=== PATIENT | female | born 1940 | race Caucasian/White ===

== ENCOUNTER 2017-08-01 08:00 | Outpatient (CLI) | payer MEDICARE ==
[2017-08-01] MEDS ORDERED: SYNTHROID88 MCG PO (08:14)
[2017-08-01] MEDS ORDERED: LISINOPRIL2.5 MG PO (08:14)
[2017-08-01] MEDS ORDERED: NAPROSYN500 MG PO (08:14)
[2017-08-01] MEDS ORDERED: LIPITOR20 MG PO (08:14)
[2017-08-01] MEDS ORDERED: ZANTAC 7575 MG PO (08:15)
[2017-08-01] MEDS ORDERED: OMEPRAZOLE40 MG PO (08:16)
[2017-08-01] MEDS ORDERED: HCTZ25 MG PO (08:16)
[2017-08-01] MEDS ORDERED: MYRBETRIQ25 MG PO (08:16)
[2017-08-01 09:17] LABS: ANION GAP 13.3 mmol/L (8-16); CALCIUM 8.9 mg/dL (8.5-10.1); CARBON DIOXIDE 25.9 mmol/L (21.0-32.0); HEMATOCRIT 37.3 % (36.0-48.0); HEMOGLOBIN 11.6 g/dL (12-16); MCH 23.4 pg (26.0-34.0); MCHC 31.1 g/dL (31.0-37.0); MCV 75.4 fL (80.0-100.0); MEAN PLATELET VOLUME 10.6 fL (7.4-10.4); POTASSIUM - SERUM 4.2 mmol/L (3.5-5.1); RBC 4.95 10x6/uL (4.00-5.40); RDW 17.5 % (11.5-14.5); WBC 5.2 10x3/uL (4.8-10.8)
[2017-09-06 08:48] VITALS: BMI 27.0
== END 2017-08-01 08:01 | disposition home or self-care (01) ==
LOC: D.OPS 08:00 → EDSTATUS 08-02 08:30 → D.PAN 08-02 08:30 → D.OPS 08-02 08:30 → D.PAN 08-02 09:30 → D.OPS 08-02 10:00
PROVIDERS: Anesthesiology
DX: N39.3 Stress incontinence (female) (male) (principal); Z01.810 Encounter for preprocedural cardiovascular examination; Z01.811 Encounter for preprocedural respiratory examination; Z01.812 Encounter for preprocedural laboratory examination; Z53.9 Procedure and treatment not carried out, unspecified reason

== ENCOUNTER 2017-09-06 07:15 | Day surgery (SDC) | payer MEDICARE ==
[~2017-09-06] VITALS: Ht 167.6 cm; Wt 75.8 kg
--- NOTE | ~2017-09-06 | OP ---
PATIENT NAME: DOREEN JANE MEDICAL RECORD: [id number] :38 LOCATION:D.OPS ADMISSION DATE: SURGEON: ALDAIR FRAZIER MD DATE OF OPERATION: 09/06/2017 SURGEON: Aldair Frazier MD ANESTHESIA: General anesthesia by Jhony Jim CRNA DIAGNOSIS: Recurrence of female stress urinary incontinence. PROCEDURE: Cystoscopy, pubovaginal sling with mesh - [place] [employer] Obtryx graft. FINDINGS: Old pubovaginal sling was made of fascia. The fascia has completely attenuated. Single ureteral orifices bilaterally. No bladder tumors, no bladder injury seen on cystoscopy. BLOOD LOSS: Minimal. CLINICAL HISTORY: This is a 77-year-old female, A0, who is complaining of stress urinary incontinence. This has been present for many years, but it is getting worse lately. In 1971, she had hysterectomy performed for heavy menses. In the , she had 2 pubovaginal slings performed for stress urinary incontinence. The second sling was successful and it lasted about 30 years, but now it has given away. She wishes to have the pubovaginal sling redone in order to become continent again. She is not sexually active. On physical examination, she did have stress urinary incontinence with a positive Shimon test. The old sling was palpable. No graft exposure was noted on speculum examination. 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 THE PATIENT IS ALLERGIC TO MORPHINE AND SULFA. She was given ampicillin branch operations specialist to the OR. DESCRIPTION OF PROCEDURE: The patient was given induction of general anesthesia. She was placed in the dorsal lithotomy position and shaved, prepped, and draped. A 16-[place]yr[place] Donato catheter was put into the bladder and put to bag drainage. The labia majora were retracted laterally using #2 nylon stay sutures. There was still quite significant stenosis of the vagina, which would make access to the urethral area difficult. Therefore, I had to make an episiotomy of about 1 cm depth in the posterior fourchette in order to have enough of an opening to work through. The anterior vaginal wall was then infiltrated with Pitressin solution. Twenty units of Pitressin was diluted in 100 mL of injectable saline. This was injected into the anterior vaginal wall for hydrodissection. A transverse incision was marked out of about 2 cm length placed 1 cm away from the urethral meatus. This was in the anterior vaginal wall. I turned this transverse incision into a T by adding a small vertical portion that ran along the anterior vaginal wall midline. The incision was made using a #15 blade. Tenotomy scissors were used to raise the vaginal mucosal flaps from the underlying urethra. Metzenbaum scissors were used to complete the dissection laterally until we entered through the pubocervical fascia and I could clearly palpate the obturator membrane on each side. The patient's old sling was made of fascia as I cannot palpate any mesh in place. The suspensory sutures can still be palpated. She has suprapubic small incision through which the suspensory OPERATIVE REPORT [id number] DOREEN JANE sutures were tied in the suprapubic area. However, no palpable or definite thickness of fascial graft remained. The collagen of the fascial graft that she had previously has been completely dissolved. At this point, we placed our landmarks for the trocar insertion. These are at the insertion of the adductor longus muscle on the descending pubic ramus. One ti was made on each side of the groin using a marking pen. A small stab incision was made on each of these dent. The [employer] Obtryx trocars were then passed behind the descending pubic ramus and through the apex of the obturator membrane. The tips then exited out through the vaginal incision. The tips of the graft were then clipped on to the tips of the trocars and the trocars were withdrawn to result in a transobturator passage of the graft. The graft was a tab in the midpoint. This midpoint was placed under the mid urethra. At this point, there was no tension on the graft. We then deflated the Donato catheter balloon and performed cystoscopy. A 17-[place]yrgy[place] cystoscope with 30-degree lens was used for visualization. No bladder injury was seen. The bladder was filled through the cystoscope. Once the scope was removed by applying manual pressure to the bladder area suprapubically, we could elicit leakage per the urethra. We then removed the tab on the midportion of the sling and then gradually increased the tension on the sling until there was minimal leakage per the urethra with suprapubic pressure. There was still a bit of dribbling with suprapubic pressure, but I could not apply any further tension to the pubovaginal sling, which was already at near maximal pressure. At this point, the clear plastic sheath material on each graft arm was completely removed. The graft arms were cut where they exited the groin skin and allowed to retract under the skin. The stab incisions were closed with simple interrupted 4-0 Vicryl. The wound was irrigated out and the anterior vaginal wall was closed with running 4-0 Monocryl. The 2-0 Vicryls were used to reapproximate the perineal body. Two such sutures were placed in a horizontal mattress fashion. The posterior vaginal wall was then reapproximated using running 4-0 Vicryl. Vaginal packing consisting of Kerlix infiltrated with estrogen cream was placed into the vagina. This will be removed prior to the patient being discharged home today. Also, the Donato catheter balloon was deflated and the Donato catheter was removed entirely. If the patient cannot void prior to going home, then we will have to send her home with an indwelling Donato catheter and give her a voiding trial tomorrow. TRANSINT:[id number] Voice Confirmation ID: [id number] DOCUMENT ID: [id number] ALDAIR FRAZIER MD at 1336 CC: [id number] DICTATION DATE: 09/06/17 1152 [address] REWINDER: 09/06/17 1217 [facility] [address] [place] [address]
[~2017-09-06 07:15] MED LIST: HCTZ25 MG PO; LIPITOR20 MG PO; LISINOPRIL2.5 MG PO; MYRBETRIQ25 MG PO; NAPROSYN500 MG PO; OMEPRAZOLE40 MG PO; SYNTHROID88 MCG PO; ZANTAC 7575 MG PO
[2017-09-06 08:01] LABS: HEMOGLOBIN 11.9 g/dL (12-16); MCH 23.5 pg (26.0-34.0); MCHC 31.3 g/dL (31.0-37.0); MEAN PLATELET VOLUME 10.4 fL (7.4-10.4); RBC 5.07 10x6/uL (4.00-5.40); RDW 17.8 % (11.5-14.5); WBC 9.4 10x3/uL (4.8-10.8)
[2017-09-06 08:24] LABS: ANION GAP 13.4 mmol/L (8-16); CALCIUM 8.9 mg/dL (8.5-10.1); CARBON DIOXIDE 28.6 mmol/L (21.0-32.0); CREATININE - SERUM 0.8 mg/dL (0.6-1.3)
[2017-09-06 08:48] VITALS: BP 131/55; Ht 167.6 cm; Wt 75.8 kg
== END 2017-09-06 14:50 | disposition home or self-care (01) ==
LOC: D.OPS 07:15 → D.PAN 10:45 → D.OPS 14:50
PROVIDERS: Anesthesiology
DX: N39.3 Stress incontinence (female) (male) (principal); Z01.812 Encounter for preprocedural laboratory examination